=== PATIENT | female | born 1960 | race Two or more races ===

== ENCOUNTER → 2017-02-01 | Day surgery (SDC) | payer OTHER ==
[~2017-02-01] MED LIST: ACETAMINOPHEN; ANUSOL SUPP1 SUPP PR; COL-RITE250 MG PO; LEVOXYL50 MC1 PO; VALSARTAN-HCTZ1 EAC1 PO; ZEBETA5 MG PO
--- NOTE | ~2017-02-01 | OR ---
Unit #: [id number] #: [id number] Patient: ABDOULAYE PEÑA [id number] [address] [place], [place] [address] [id number] MR#: [id number] NAME: ABDOULAYE PEÑA ROOM: Date of Procedure: 02/01/2017 Admission Date: 02/01/2017 Surgeon: Brock Gonzales Jr., M.D. : 1960 Attending Physician: Brock Gonzales Jr., M.D. Referring Physician: Brock Gonzales Jr., M.D. OPERATIVE REPORT INDICATIONS FOR PROCEDURE The patient is a 56-year-old [place] white female, who presented to the office complaining of intermittent rectal pain and bleeding and also has had no previous colonoscopy in the past. She is brought in this time for colonoscopy at her request to determine the source of bleeding as well as for screening purposes to rule out occult malignancy or polyps or other abnormalities. She understands the procedure including the risks, including that of perforation and bleeding, and consents. PREOPERATIVE DIAGNOSIS Rectal bleeding etiology? POSTOPERATIVE DIAGNOSES Elongated tortuous colon with internal hemorrhoids, these were not actively bleeding today. ANESTHESIA MAC anesthesia. PROCEDURE PERFORMED Flexible colonoscopy to the cecum. DESCRIPTION OF PROCEDURE The patient was positioned in Zelaya position with left side down. After being given MAC anesthesia, digital rectal examination was performed, which revealed no palpable mass or tenderness. No blood or stool in the rectal ampulla. The patient was noted to have some palpable internal hemorrhoids with at least one probably being thrombosed. These were small though. The Olympus colonoscope was advanced through the anal canal up the rectum and retroflexed down to the area of the anorectal region, again noted were some internal hemorrhoids, which were not actively bleeding and not significantly enlarged. The scope was then straightened and advanced up the rectosigmoid, in the sigmoid and descending colon areas, around the splenic flexure and the transverse colon, around hepatic flexure and ascending colon, down in the area of the cecum. The light from the tip of the scope could be seen transilluminating through right lower quadrant abdominal wall area. Multiple attempts advancing the scope up the distal ileum were unsuccessful. The scope was slowly removed. There were no tumors, polyps, cancer, or AVMs. No evidence any colitis, diverticulosis, or diverticulitis. The caliber of the colon appeared normal throughout. The scope was removed. The patient tolerated the procedure well and discharged in satisfactory condition. Unit #: [id number] #: [id number] Patient: ABDOULAYE PEÑA Dictated by... Brock Gonzales Jr., MJennifer HORTA/italo TD: 02/02/2017 01:38 JOB #: [id number] OPERATIVE REPORT Page 1 of 1 X Brock Gonzales MD X PROCEDURE OPERATIVE NOTE
== END | disposition home or self-care (01) ==
LOC: COPS 10:18
DX: K56.2 Volvulus (principal); K64.8 Other hemorrhoids; I10 Essential (primary) hypertension; E03.9 Hypothyroidism, unspecified; Z88.8 Allergy status to other drugs, medicaments and biological substances; Z79.899 Other long term (current) drug therapy; Z90.49 Acquired absence of other specified parts of digestive tract; Z90.710 Acquired absence of both cervix and uterus
CPT/HCPCS: J2250

== ENCOUNTER 2017-02-19 23:57 | Emergency (ER) | payer OTHER | END 2017-02-20 | disposition left against medical advice (07) | LOC: CED 23:57 | DX: Z53.21 Procedure and treatment not carried out due to patient leaving prior to being seen by health care provider (principal) ==